=== PATIENT | male | born 1980 | race African-American/Black ===

== ENCOUNTER 2019-03-03 14:00 | Inpatient (IN) | payer BC ==
[2019-03-03] MEDS ORDERED: Succinylcholine Chloride 20 MG/ML 10 ml SYRINGE FS ONE (14:45)
[2019-03-03] MEDS ORDERED: Lidocaine 1% PF 5 ML VIAL ONE (14:45)
[2019-03-03] MEDS ORDERED: ePHEDrine/0.9% NaCl/PF SYRINGE 50 mg/10 ml ONE (14:45)
[2019-03-03] MEDS ORDERED: PROPOFOL 200 MG/20 ML VIAL ONE (14:45)
[2019-03-03] MEDS ORDERED: PHENYLEPHRINE-NS 100 MCG/ML 10 ML SYRINGE ONE (14:45)
[2019-03-03 15:30] LABS: #Basophils 0.1 thou/uL (0.0-0.2); #Eosinphils 0.3 thou/uL (0.0-0.7); #Lymphocytes 1.5 thou/uL (1.20-3.40); #Monocytes 0.6 thou/uL (0.11-0.59); #Neutrophils 5.2 thou/uL (1.40-6.50); %Basophils 0.7 % (0.0-1.0); %Eosinophils 3.6 % (0.0-10.0); %Lymphocytes 19.2 % (21.0-51.0); %Neutrophils 68.5 % (42.0-75.0); Hemoglobin 12.2 g/dL (14.0-18.0); Mean Corpuscular HGB CONC 32.1 g/dL (32.0-36.0); Mean Corpuscular Hemoglobin 25.9 pg (27.0-31.0); Mean Corpuscular Volume 80.6 fL (78.0-98.0); Mean Platelet Volume 8.4 fL (7.4-10.4); Platelet Count 477 thou/uL (130-400); RBC Distribution Width 13.7 % (11.5-14.5); Red Blood Cell (RBC) Count 4.73 mill/uL (4.70-6.10); White Blood Cell (WBC) Count 7.6 thou/uL (4.8-10.8)
[2019-03-03 15:57] LABS: ALT (SGPT) 30 U/L (8-55); AST (SGOT) 29 U/L (5-34); Albumin 3.5 g/dL (3.5-5.0); Alkaline Phosphatase 83 U/L (40-110); Anion Gap 12 mmol/L (10-20); BUN (Urea Nitrogen) 11 mg/dL (8.9-20.6); Bilirubin, Total 0.6 mg/dL (0.2-1.2); Calc. Creatinine Clearance 0 mL/min (70-130); Calcium 9.8 mg/dL (7.8-10.44); Carbon Dioxide 23 mmol/L (22-29); Chloride 102 mmol/L (98-107); Estimated GFR-MDRD Greater than 90; Globulin 5.2 g/dL (2.4-3.5); Glucose 119 mg/dL (70-105); Potassium 3.9 mmol/L (3.5-5.1); Protein, Total 8.7 g/dL (6.0-8.3); Sodium 133 mmol/L (136-145)
[2019-03-03 17:46] LABS: Bacteria/HPF None Seen HPF (None Seen); Bilirubin Negative (Negative); Blood, Urine Negative (Negative); Clarity Turbid (Clear); Glucose, Urine (Dipstick) Normal (Negative); Leukocyte Negative Leu/uL (Negative); Mucous/LPF Rare LPF (<2+); Nitrite Negative (Negative); Protein, Urine (Dipstick) 30 mg/dL (Neg-Trace); RBC/HPF 0-3 HPF (0-3); Squamous Epithelial 0-3 HPF (0-3); Urobilinogen Normal mg/dL (Less than 2); WBC/HPF 0-3 HPF (0-3)
[2019-03-03] MEDS ORDERED: Lidocaine 1% w/Epinephrine 1:100K 20 ML VIAL ONE ×2 (17:53→20:33)
[2019-03-03] MEDS ORDERED: Bupivacaine 0.25% HCL 30 ML VIAL ONE (19:18)
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
[2019-03-03] MEDS ORDERED: Midazolam HCl 2 mg/2 ml Vial ONE (19:37)
[2019-03-03] MEDS ORDERED: Fentanyl 100 MCG/2 ML VIAL ONE ×2 (19:37→21:07)
[2019-03-03] MEDS ORDERED: HYDROmorphone 0.5 MG/0.5 ML SYRINGE ONE (21:07)
[2019-03-03] MEDS ORDERED: Piperacillin/Tazobactam 3.375 GM VIAL ONE (21:17)
[2019-03-03] MEDS ORDERED: Promethazine HCl 25 MG/ML VIAL IM PRN (21:55)
[2019-03-03] MEDS ORDERED: Ondansetron HCl/PF 4 MG/2 ML Vial IVP PRN (21:55)
[2019-03-03] MEDS ORDERED: Promethazine HCl 25 MG/ML VIAL SLOW IVP PRN (21:55)
[2019-03-03] MEDS ORDERED: Ondansetron PF 4 MG/2 ML Vial ONE (22:04)
[2019-03-03] MEDS ORDERED: Acetaminophen 325 MG TAB PO PRN (22:11)
[2019-03-03] MEDS ORDERED: Ibuprofen 200 MG TAB PO PRN ×2 (22:12)
[2019-03-03] MEDS ORDERED: Ibuprofen 600 MG TAB PO PRN (22:13)
[2019-03-03] MEDS ORDERED: Ibuprofen 800 MG TAB PO PRN (22:14)
[2019-03-03] MEDS ORDERED: HYDROcodone/Acetaminophen 7.5/325 mg Tablet PO PRN (22:15)
[2019-03-03] MEDS ORDERED: Ondansetron PF 4 MG/2 ML Vial SLOW IVP PRN (22:16)
[2019-03-03] MEDS ORDERED: Lidocaine 4% Topical Sol 50 ML BOT TOP PRN (22:18)
[2019-03-03] MEDS ORDERED: Morphine 2 MG/ML SYRINGE SLOW IVP PRN (22:18)
[2019-03-03] MEDS ORDERED: Morphine 4 MG/ML VIAL SLOW IVP PRN (22:18)
[2019-03-03 23:02] VITALS: BMI 56.2
[2019-03-04] MEDS ORDERED: Piperacillin/Tazobactam 3.375 GM VIAL ONE ×2 (05:54→11:37)
[2019-03-04] MEDS: Piperacillin/Tazobactam 3.375 GM in Sodium Chloride 0.9% 100 ML IVPB SCH ×3 (13:04→21:46)
[2019-03-04] MEDS: Sodium Chloride 0.9% 1,000 ML IV SCH ×3 (13:04→17:05)
[2019-03-04] MEDS: Acetaminophen 325 MG TAB PO PRN ×2 (17:06→21:48)
[2019-03-05] MEDS: Acetaminophen 325 MG TAB PO PRN (02:17)
[2019-03-05] MEDS: Piperacillin/Tazobactam 3.375 GM in Sodium Chloride 0.9% 100 ML IVPB SCH ×4 (02:22→20:37)
[2019-03-05] MEDS: Sodium Chloride 0.9% 1,000 ML IV SCH ×2 (05:11→14:03)
[2019-03-05] MEDS ORDERED: Enoxaparin Sodium 40 MG/0.4 ML SYRINGE SC SCH (13:00)
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
--- NOTE | 2019-03-05 14:34 | PDOC.GSPN ---
Surgery Progress Note: Subj - Subjective Narrative: Patient feels good. No real pain in his leg at this point. No fevers or chills. The VAC is in place and has a good seal. The swelling and tenderness in his leg has improved. Cultures are showing rare growth with final ID and sensitivity pending. We will continue with IV antibiotics and VAC dressings for this. I am starting Lovenox and have encouraged him to ambulate frequently. He is compliant with SCDs while in bed. Surgery Progress Note: Obj - Vital signs Vital signs: Vital Signs - Most Recent Temp Pulse Resp BP Pulse Ox 98.1 F 74 20 117/73 98 03/05/19 07:28 03/05/19 07:28 03/05/19 07:28 03/05/19 07:28 03/05/19 07:28 Surgery Progress Note: Results - Labs Result Diagrams: 03/03/19 15:11 03/03/19 15:11
[2019-03-05] MEDS: HYDROcodone/Acetaminophen 7.5/325 mg Tablet PO PRN (16:33)
[2019-03-06] MEDS: Piperacillin/Tazobactam 3.375 GM in Sodium Chloride 0.9% 100 ML IVPB SCH ×2 (03:19→08:43)
[2019-03-06] MEDS: Sodium Chloride 0.9% 1,000 ML IV SCH ×2 (03:22→09:40)
[2019-03-06] MEDS: HYDROcodone/Acetaminophen 7.5/325 mg Tablet PO PRN (05:17)
[2019-03-06] MEDS ORDERED: Enoxaparin Sodium 40 MG/0.4 ML SYRINGE SC SCH (09:00)
[2019-03-06] MEDS ORDERED: Lidocaine 1% (PF) 30 ML VIAL ONE (09:11)
[2019-03-06] MEDS: Acetaminophen 325 MG TAB PO PRN (10:45)
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
[2019-03-06 14:31] VITALS: BP 122/74; TEMP 98.2
== END 2019-03-06 14:22 | disposition home or self-care (01) | DRG 571 ==
LOC: ERS 14:00 → T4-A 22:50
PROVIDERS: ADMIT Surgery; ATTEND Surgery
PROC: 0JBM0ZZ Excision of Left Upper Leg Subcutaneous Tissue and Fascia, Open Approach (ICD-10-PCS; principal; 2019-03-03)
PROC: 0J9M0ZZ Drainage of Left Upper Leg Subcutaneous Tissue and Fascia, Open Approach (ICD-10-PCS; 2019-03-03)
DX: L03.115 Cellulitis of right lower limb (principal); E87.1 Hypo-osmolality and hyponatremia; Z68.43 Body mass index [BMI] 50.0-59.9, adult; E66.01 Morbid (severe) obesity due to excess calories; L02.416 Cutaneous abscess of left lower limb; S70.12XD Contusion of left thigh, subsequent encounter
CPT/HCPCS: 36415; 80053; 81003; 81015; 83605; 85025; 87040; 87070; 87077; 87186; 87205; 93005; 96360; 96361; J1170; J1650; J2001; J2250; J2270; J2405; J2543; J2704; J3010; J3490; S0020